=== PATIENT | female | born 1975 | race Caucasian/White ===

== ENCOUNTER → 2017-11-23 10:12 | Outpatient (CLI) | payer BC, SELFPAY ==
[2017-11-25 14:38] LABS: HPV Reflexed? NOT INDICATED
== END ==
PROVIDERS: Visit Provider Obstetrics & Gynecology
DX: Z12.4 Encounter for screening for malignant neoplasm of cervix (principal)
CPT/HCPCS: 88175; G0145

== ENCOUNTER → 2018-12-04 | Outpatient (CLI) | payer BC, SELFPAY ==
[2015-09-30 12:56] VITALS: BMI 29.5
[2018-12-11 13:00] LABS: HPV Reflexed? NOT INDICATED
== END | disposition home or self-care (01) ==
LOC: LABSPEC 15:24
PROVIDERS: Visit Provider Obstetrics & Gynecology
DX: Z12.4 Encounter for screening for malignant neoplasm of cervix (principal)
CPT/HCPCS: 88175; G0145

== ENCOUNTER 2019-05-16 05:53 | Day surgery (SDC) | payer BC, SELFPAY ==
--- NOTE | 2019-05-13 06:27 | PCM.HPOB.BLA ---
History and Physical Date of Admission: 05/16/19 MAXIMILIAN JACKSON Age: 44 Date of : 1975 HISTORY OF PRESENT ILLNESS: On 04/24/2019, Maximilian Jackson, a 44 year old female 1 1 4 0 2, presented for: -- US ANESTHESIOLOGY TECH Maximilian is here for pelvic u/s d/t heavy, irregular bleeding. LMT -- Here for postmenses ultrasound. She had called in on 04/18/19 to report she is not doing well on Kariva and started this in December. Bleeding is heavier and headaches are worse. She is changing a pad q 2 hours on heavy days and has some clots. She is considering tubal. Advised this may be best option to just go off pill. Sono today done sono in case considering ablation and to check for fibroids or other cause of persistent heavy bleeding despite OCP trials. Advised by phone ok to stop OCP in the meantime as she is in the end of this pack. She had a full panel of labs with her PCP in February -- CBC was normal no anemia. SONO today: UTERUS: 5.9 x 4.5 x 3.3 cm and is retroverted.. ENDOMETRIAL ECHO: 2 mm and contains a sub cm calcification. RIGHT OVARY: 1.6 x 1.3 x 2 cm. LEFT OVARY: 2.2 x 1.1 x 0.8 cm and contains a simple cyst measuring 1.2 x 1 x 0.8 cm. EB ALLERGIES: Progesterone and Muscle aches MEDICATIONS HISTORY: Current medications prescribed by our practice are: 1. Folbic 2.5 mg-25 mg-2 mg tablet, One po daily 2. Kariva (28) 0.15 mg-0.02 mg (21)/0.01 mg (5) tablet, 1 po daily 3. PNV-DHA 27 mg iron-1 mg-300 mg capsule, One pill by mouth once a day Patient is also takin. Zyrtec 10 mg tablet, One per day prn 2. spironolactone 50 mg tablet, bid SURGICAL HISTORY: 1. [place] teeth removed at age 19-20 2. Kidney stones blasted x 2 4 years ago 3. 03/08/2011 D and C SAB 4. 01/13/2012 D and C SAB 5. 01/12/2013 D and C SAB 6. 03/14/2012 Hysteroscopy 7. 02/04/2013 Sonohysterogram 8. 03/14/2013 Hysteroscopy 9. 04/13/2013 Retrieval on IVF 10. 06/10/2013 Sonohysterogram 11. 08/22/2013 Frozen Transfer - Failed 12. cholecystectomy, 17 years ago MENSTRUAL HISTORY: LMP Known?- DefiniteAmount/Duration - 4-5 DAYS, Regularity - Regular, Frequency - monthly days, Prior Menses - 08/04/2013, LMP - 04/18/19, Age Onset Menarche - 13 PAST PREGNANCIES: Total Pregnancies - 6; Full Term Pregnancies - 1; Premature - 1; Abortions, Induced - 0; Abortions, Spontaneous - 4; Ectopics - 0; Multiple Births - 0; Living Children - 2 FAMILY HISTORY: Father - FH: Crohn's disease; Father - FH: Hypertension; Mother - FH: Diabetes mellitus type 2; Brother - FH: Crohn's disease; MaternalGrandparent - FH: Diabetes mellitus type 2; PaternalGrandparent - Cancer; SOCIAL HISTORY: Alcohol Use - None Smoking - Never Diet - moderate, balanced diet and caffeine < 2 drinks per day Lifestyle - low stress lifestyle Exercise - regular Seat Belt Use - always Employer - Independent 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 Illicit Drug Use - None Sexual Activity - Residence - owns a home Place of - [place], [place] Hours Worked - 36 per week Spouse-Sig Other Name - Emile Spouse-Sig Other Occupation - [employer] Operator for [employer] Spouse-Sig Other Phone No - [phone] Children Name(s) - Swapna ([facility])Yas '16 Control - OCP PHYSICAL EXAMINATION BP- 122/84 Sitting, Right arm, regular cuff Weight- 130.00 lbs Height- 62.50 inch BMI:23.45 CONSTITUTIONAL - NAD, well nourished, and well developed HEENT - Normocephalic, PERRLA, EOMI NECK - no nuchal rigidity EXTREMITIES - No edema or calf tenderness NEUROLOGICAL - Cranial nerves II-XII grossly intact PSYCHIATRIC - A and O to time, place, person, mood and affect ASSESSMENT: 1. Excessive Bleeding In The Premenopausal Period 2. Other Specified Counseling 3. Other specified irregular menstruation PLAN BY DIAGNOSIS: 1. Other Specified Counseling Reviewed options for surgical sterilization including: ESSURE, Laparoscopic bilateral tubal occlusion (Filshie clips); Laparoscopic bilateral tubal fulguration, or laparoscopic bilateral salpingectomy. Prefers Laparoscopic bilateral salpingectomy. Reviewed anticipated preop,operative and postop recovery courses. Plan for laparoscopic bilateral salpingectomy with potential to reduce ovarian cancer risk in addition to prevention of Plans to stop OCP. Will use condoms until surgery. Requesting surgery this year. The visit was approximately 20 minutes in length with most of the time spent in discussion and counseling. 2. Excessive Bleeding In The Premenopausal Period and Other specified irregular menstruation Discussed sono results: no fibroids, no thickened endometrium Options for management including: IUD (declines) other hormonal contraception (declines) endometrial ablation or hysterectomy Interested in endometrial ablation. R,B,A discussed, Reviewed anticipated preop, operative and postop recovery courses including return to usual activity Brochure given to read and consider further re Dannielle. Will schedule hysteroscopy, D and C, Dannielle endometrial ablation in addition to laparoscopic bilateral salpingectomy for surgical sterilization ( not recommended with ablation)
[2019-05-16 06:25] LABS: Hematocrit 38.3 % (37-47); Hemoglobin 13.6 g/dL (12.0-15.0); Mean Corp Hgb Conc 35.5 g/dL (32-36); Mean Corpuscular Hgb 31.6 pg (27.0-32.0); Mean Corpuscular Volume 88.9 fL (81-99); Platelet Count 239 K/mm3 (150-450); RBC Distribution Width CV 11.8 % (11.6-14.6); RBC Distribution Width SD 37.7 fl (35.1-43.9); Red Blood Count 4.31 M/mm3 (4.2-5.4); White Blood Count 5.3 K/mm3 (4.4-11.0)
[2019-05-16 06:25] LABS: Internal QC Validated? YES +Cl - CLEAR BKGD; Pregnancy, Urine Negative Negative
[2019-05-16 06:26] VITALS: BP 135/99; PULSE 90; RESP 16; TEMP 37.1; O2SAT 100; BMI 23.8
[2019-05-16 06:34] LABS: International Normalized Ratio 1.1; Prothrombin Time (Protime)PT. 13.5 SECONDS (11.7-14.9)
[2019-05-16 06:35] LABS: Partial Thromboplast Time 27.6 Seconds (24.1-36.2)
[2019-05-16] MEDS: Lactated Ringers 1,000 ML 100 ML IV (06:43)
[2019-05-16 06:52] LABS: Anion Gap 4 (5-15); BUN 16 mg/dL (7-18); Calcium,Total 8.8 mg/dL (8.5-10.1); Chloride 111 mmol/L (98-107); Creatinine, Serum 0.89 mg/dL (0.55-1.02); EST Glomerular Filtration Rate 74 mL/min (>60); Est Glom Filt Rate - Afr Amer 89 mL/min (>60); Estimated Creatinine Clearance 64.46 ml/min; Glucose 106 mg/dL (74-106); Potassium 3.8 mmol/L (3.5-5.1); Sodium Level 142 mmol/L (136-145)
--- NOTE | 2019-05-16 07:30 | FALS_PTH ---
PATIENT: MAXIMILIAN TEIXEIRA LOC: [facility] [place] U[place][id number] AGE/SX: 44/F ROOM: RE05/16/[address]: Dr. Rowan Drew MD : 1975 BED: DIS: 05/16/2019 SPEC #: [id number] RECD: 05/16/19 10:23 STATUS: ABILIO REHolly #: [id number] JAGDEEP: 05/16/19 07:[address]: Rowan Drew DEPT: SURGICAL PATHOLOGY RECD BY: Henry Blanco ENTERED: 05/16/19 13:31 SP TYPE: FALL TUBES OTHR DR: Dr. Emile Plaza MD Tissues: A - Fallopian tube B - Endometrium, NOS Procedures: Surgery Specimen Level IV HEADER OPERATION: Laparoscopic, salpingectomy PRE-OP DIAGNOSIS: Sterilization TISSUE SUBMITTED: A. Bilateral fallopian tubes, B. Endometrial curettings MICROSCOPIC DIAGNOSIS A. Bilateral fallopian tubes, salpingectomy: Bilateral fallopian tubes including fimbrial ends, no pathologic diagnosis. B. Endometrial curettings: Fragments of benign endometrial tissue and blood clots. Fragments of benign endocervical mucosa with chronic inflammation. See comment. OMI:misty 05/17/19 COMMENT The specimen predominantly consists of blood clots and benign endometrial tissue predominantly consisting of stromal tissue with scattered, inactive endometrial glands. MICROSCOPIC DESCRIPTION Slides are reviewed. GROSS DESCRIPTION A - Received is one container labeled with the patient's name and designated bilateral fallopian tubes. The specimen consists of bilateral fallopian tubes including fimbrial ends measuring 4.5 cm in length and 0.5 cm in diameter and 5 cm in length and 0.5 cm in diameter. Sections do not reveal any mass lesion. The fallopian tubes are not identified as right or left. Sections reveal unremarkable cut surfaces. Clerical Specialist sections are submitted in two cassettes with each cassette containing one fallopian tube. B - Received in fixative is one container labeled with the patient's name and designated endometrial curettings. The specimen consists of multiple fragments of hemorrhagic soft tissue that in aggregate measure 2 x 1.5 x 0.1 cm. The specimen is totally submitted in one cassette. / OMI:misty 05/16/19 TC:5 CPT: 74425, 37426 x2
[2019-05-16] MEDS: Bupiv/Epi 0.25% 30 ML Vial (08:37)
--- NOTE | 2019-05-16 08:55 | PCM.DC.TUB ---
Discharge Diet: No Restrictions Discharge Activity: May not drive while taking narcotic pain medications., May Shower, May Take a Tub Bath Return to work on:: 05/18/19 May resume sexual activity in: 1-2 weeks, 4-6 weeks Additional Activity Instructions:: Ambulate often the next week after surgery. Nothing in the vagina for 5 days. Call your doctor if you observe: Fever of 101 or Higher, Inability to have a bowel movement, Using more than one pad per hour, Uncontrolled pain Cleanse incision/area with: Soap & Water, Keep Dressing Clean & Dry Allergies/Adverse Reactions: Allergies No Known Allergies Allergy (Verified 05/09/19 11:17) Medications to take at Discharge Anti Aging Formula 3 cap PO DAILY 05/09/19 Desog-E.estradiol/E.estradiol [Kariva 28 Day Tablet] 1 ea PO DAILY 05/09/19 Ferrous Sulfate [Iron] 325 mg PO DAILY 05/09/19 Folic Acid [FA-8] 0.8 mg PO DAILY 05/09/19 Spironolactone [Aldactone] 50 mg PO BID 05/09/19 Oxycodone [Oxyir] 5 mg PO Q6H PRN PRN 3 Days #10 tablet 05/16/19 The following prescriptions were given: Oxycodone [Oxyir] 5 mg PO Q6H PRN PRN 3 Days #10 tablet PRN Reason: Mod-Severe Pain (4-03/15) Transmission Status: Received by [facility]/pharmacy #[id number] Primary Care Physician: Emile Plaza MD [Primary Care Provider] - Test Results: Test results from this visit will be discussed in further detail at your follow-up appointment, if applicable. Please Follow Up With: Rowan Drew MD - [phone] When: 1-2 wk for incision check, postop appt. Proposed Discharge Date: 05/16/19
[2019-05-16 09:00] VITALS: BP 126/85; BP 135/99; PULSE 93; RESP 16; TEMP 36.6; O2SAT 100
[2019-05-16 09:15] VITALS: BP 123/82; BP 135/99; PULSE 81; RESP 16; O2SAT 100
[2019-05-16 09:30] VITALS: BP 132/84; BP 135/99; PULSE 84; RESP 16; O2SAT 100
[2019-05-16 09:45] VITALS: BP 135/84; BP 135/99; PULSE 88; RESP 16; TEMP 37.3; O2SAT 100
[2019-05-16] MEDS: oxyCODONE 5 MG Tablet PO (10:06)
[2019-05-16 11:01] VITALS: BP 115/68; BP 135/99; PULSE 89; TEMP 36.6; O2SAT 96
--- NOTE | 2019-05-16 12:40 | OP.PCM_ITS ---
Report of Operation Date of Procedure: 05/16/19 Pre-Operative Diagnosis: Excessive bleeding in premenopause, Sterilization request Post-Operative Diagnosis: Same Surgery/Procedure Performed:: Laparoscopic bilateral salpingectomy. Hysteroscopy, D and C, Hydrothermal ablation. Description of Surgical Findings:: Findings: Laparoscopic findings: There is a normal-appearing retroverted, small uterus. Fallopian tubes and ovaries are within normal limits. Gross inspection of the bowel, omentum, liver edge are also within normal limits. Photos were taken of the uterus and ovaries after the bilateral partial salpingectomy, and of the right upper quadrant/liver edge. Hysteroscopic findings: Normal-appearing , fluffy endometrium. Neither tubal ostia visualized . Narrative account: After the risks, benefits, alternatives of the procedure have been reviewed with the patient, informed consent was obtained. The patient was taken to the operating room with an IV running. She was positioned on the operating table in dorsal supine position, where she was given general anesthesia. Once asleep she was repositioned into the dorsal lithotomy position and prepped and draped in the usual sterile fashion. A red Posey catheter was used to drain the bladder prior to initiating the case. A sponge stick was placed into the cervix to allow manipulation of the cervix and uterus during the case. Attention was then turned to the anterior abdominal wall where 0.25% percent Marcaine with epinephrine was instilled at the suprapubic and infraumbilical skin and at a point midway between the two, in the midline. Skin incisions were then created in the midline at the suprapubic skin, at the infraumbilical skin, and at a point in the midline midway between the two. While maintaining upward traction of the anterior abdominal wall, a Veress needle was inserted through the umbilical incision into the peritoneal cavity. There was free drop of saline, low opening pressure and free flow of CO2 noted. Once the intra- abdominal pressure had reached 12 mmHg the Veress needle was removed and a bladeless 5 mm trocar was inserted through the infraumbilical skin incision into the peritoneal cavity. Correct placement was confirmed using the scope. Under direct visualization then with the patient in Trendelenburg position, a bladeless 5 mm trocar was inserted in through the suprapubic skin incision into the peritoneal cavity and at the mid lower abdominal incision midway between the infraumbilical and suprapubic trocars. The uterus was retroverted and small. Both ovaries and fallopian tubes were within normal limits. The right fallopian tube was grasped and retracted medially and using a LigaSure device the right fallopian tube was excised from the ovary and mesosalpinx to the level of the uterine fundus. Excellent hemostasis was noted at the excision site. The right fallopian tube was brought through the suprapubic trocar and set aside for later pathology review. In a similar manner the left fallopian tube was grasped and retracted medially and the fallopian tube was excised and removed from the abdominal cavity through the suprapubic trocar. The fallopian tubes were sent to pathology. Excellent hemostasis was noted by visualization of the pelvis, ovaries, and remaining mesosalpinx. Photos were taken of the uterus and bilateral remaining ovaries and of the right upper quadrant and liver edge. At this point the laparoscopic portion of the procedure was terminated. The pneumoperitoneum was reduced and the instruments and trochars were removed from the anterior abdominal wall skin. The skin incisions were closed with 4-0 Monocryl in a subcuticular fashion Dermabond was applied to the skin. A Graves speculum was placed into the vagina and the cervix was brought into view. A single-tooth tenaculum was applied to the anterior lip of the cervix. The cervix was sequentially dilated to allow admission of the hysteroscope. The uterus sounded to 6 cm and was retroverted. The hysteroscopy was performed with the findings noted above. A sharp curettage was then performed and pieces of tissue were were withdrawn and set aside for later pathology review. There was good crei in all quadrants The Dannielle device was opened but due to the small uterus could not be used for the ablation. The Hydrothermal ablation device was brought into the room and set up. The 10 minute HTA was performed. At the completion of the treatment cycle the device was cooled and removed from the patient. At this point the procedure was terminated the single-toothed tenaculum was removed from the anterior lip of the cervix and a Ray-Sheryl gauze was used to remove any remaining tissue and blood from the upper vagina and cervix. Excellent hemostasis was noted. The speculum was removed. The patient was returned to dorsal supine position and awakened from IV sedation and then transferred to her recovery room bed in stable condition after tolerating the procedure well. Sponge, lap, needle, and instrument counts were correct x2. Medications given intraoperatively included 10 cc of 0.25% lidocaine with epinephrine instilled as a subcutaneous block for the laparoscopic bilateral sa lpingectomy. For complete listing the medications given intraoperatively, see the anesthesia record. community service coordinator: Cece Wu Type of Anesthesia:: General Anesthesiologist: Coleen Finnegan CRNA Specimen's removed: uterine curettings. Bilateral fallopian tubes Estimated Blood Loss (mL): 20 Fluids Replaced: LR - Complications None - Admit VTE Documentation VTE Present on Admission: No VTE Mechan Device Prophylaxis: [facility] [place]'s VTE Pharm Prophylaxis ordered?: No
== END 2019-05-16 11:06 | disposition home or self-care (01) ==
LOC: SDC 05:53 → AC 05:56
PROVIDERS: Anesthesiology; Family Provider Family Medicine; PCP Family Medicine; Referring Provider Obstetrics & Gynecology; Visit Provider Obstetrics & Gynecology
PROC: (CPT 58661; principal; 2019-05-16 07:15)
PROC: 0U5B8ZZ Destruction of Endometrium, Via Natural or Artificial Opening Endoscopic (ICD-10-PCS; CPT 58558; 2019-05-16 07:15)
DX: N92.0 Excessive and frequent menstruation with regular cycle (principal); N71.1 Chronic inflammatory disease of uterus; Z30.2 Encounter for sterilization; I10 Essential (primary) hypertension; E61.1 Iron deficiency; Z87.442 Personal history of urinary calculi; Z79.899 Other long term (current) drug therapy
CPT/HCPCS: 58558; 58661; 36415; 80048; 81025; 85027; 85610; 85730; 88302; 88305; J7120; J2405

== ENCOUNTER → 2021-11-11 | Outpatient (CLI) | payer BC, SELFPAY ==
--- NOTE | 2021-11-11 16:02 | RAD_ITS ---
EXAM: XR ABDOMEN, 1 VIEW CLINICAL INDICATION: RENAL CALCULUS TECHNIQUE: Frontal supine view of the abdomen/pelvis. This report was created using [employer] report generation technology. COMPARISON: None. FINDINGS: LOWER THORAX: No acute pathology. GASTROINTESTINAL TRACT: Unremarkable. Non-obstructive. No bowel or stomach distention. ORGANS: Unremarkable as visualized. No organomegaly. No abnormal calcifications. BONES/JOINTS: No acute pathology. SOFT TISSUES: No acute pathology. RAD/Abdomen Single View IMPRESSION: Non-obstructive bowel gas pattern. Electronically Signed: Garrett Borja MD at 16:16 EDT ,
== END | disposition home or self-care (01) ==
PROVIDERS: PCP Family Medicine; Referring Provider Urology; Visit Provider Urology
DX: N20.0 Calculus of kidney (principal)
CPT/HCPCS: 74018

== ENCOUNTER → 2022-03-17 | Outpatient (CLI) | payer BC, SELFPAY ==
[2022-03-24 11:17] LABS: HPV APTIMA, High Risk Negative (Negative)
== END | disposition home or self-care (01) ==
LOC: LABSPEC 13:41
PROVIDERS: PCP Family Medicine; Visit Provider Obstetrics & Gynecology
DX: Z12.4 Encounter for screening for malignant neoplasm of cervix (principal)
CPT/HCPCS: 87624; 88175; G0145

== ENCOUNTER → 2023-01-12 | Outpatient (CLI) | payer BC, SELFPAY ==
--- NOTE | 2023-01-12 12:36 | RAD_ITS ---
EXAM: XR ABDOMEN, 1 VIEW CLINICAL INDICATION: JULIETTE OF KIDNEY TECHNIQUE: Frontal supine view of the abdomen/pelvis. COMPARISON: November 11, 2021. FINDINGS: LOWER THORAX: No acute pathology. GASTROINTESTINAL TRACT: Unremarkable. Non-obstructive. No bowel or stomach distention. ORGANS: Unremarkable as visualized. No organomegaly. No abnormal calcifications. BONES/JOINTS: No acute pathology. SOFT TISSUES: No acute pathology. RAD/Abdomen Single View IMPRESSION: Non-obstructive bowel gas pattern. Electronically Signed: Pankaj Naqvi MD at 3:28 EDT ,
== END | disposition home or self-care (01) ==
LOC: MTRAD 12:34
PROVIDERS: PCP Family Medicine; Referring Provider Urology; Visit Provider Urology
DX: N20.0 Calculus of kidney (principal)
CPT/HCPCS: 74018

== ENCOUNTER 2024-10-23 05:54 | Day surgery (SDC) | payer BC, SELFPAY ==
[2024-10-23] VITALS (9 sets, daily range): BP systolic 112–134; BP diastolic 71–99; PULSE 89–106; RESP 16–20; TEMP 36.8–37; O2SAT 99–100; BMI 24.2
[2024-10-23] MEDS: Lactated Ringers 1,000 ML 15 ML IV (06:39)
--- NOTE | 2024-10-23 06:45 | PCM.PRE.AN2 ---
ASA Classification* ASA Classification ASA Classification: 2 Assessment & Plan Anesthesia* Anesthesia Assessment Anesthesia Assessment: Discussed sedation and/or anesthesia options, risks, benefits, and alternatives with patient/parents/legal guardian/POA. Questions invited. The patient/parents/legal guardian/POA seems to understand and agrees to proceed with anesthesia plan. Reviewed the physical assessment, medical history, allergy history and patient home medications list prior to surgery/procedure/anesthetic and documented any changes. Performed airway and anesthesia risk assessments. Anesthesia Type Anesthesia Type: MAC (GA bkup) Anesthesia Focused Assessment* Temperature: 98.6 F Pulse Rate: 92 Blood Pressure: 134/87 Respiratory Rate: 16 Pulse Ox: 100 Airway Assessment Mouth opens: >3 cm Mallampati Score: II Focused Labs Anesthesia Preop lab: CBC WBC 5.3 K/mm3 (4.4-11.0) 05/16/19 06:09 05/16/19 RBC 4.31 M/mm3 (4.2-5.4) 05/16/19 06:09 05/16/19 Hgb 13.6 g/dL (12.0-15.0) 05/16/19 06:09 05/16/19 Hct 38.3 % (37-47) 05/16/19 06:09 05/16/19 Plt Count 239 K/mm3 (150-450) 05/16/19 06:09 05/16/19 CHEMISTRY Potassium 3.8 mmol/L (3.5-5.1) 05/16/19 06:09 05/16/19 Sodium 142 mmol/L (136-145) 05/16/19 06:09 05/16/19 BUN 16 mg/dL (7-18) 05/16/19 06:09 05/16/19 Creatinine 0.89 mg/dL (0.55-1.02) 05/16/19 06:09 05/16/19 Glucose 106 mg/dL (74-106) 05/16/19 06:09 05/16/19 TSH 1.86 uIU/mL (0.358-3.74) 12/28/16 09:02 12/28/16 COAG PT 13.5 SECONDS (11.7-14.9) 05/16/19 06:09 05/16/19 Urine Test Negative Negative 05/16/19 06:15 05/16/19 Pre-Assessment Diagnosis/Proposed Procedure Planned Operative Procedure(s): (N/A) Wide localized excision dysplastic nevus abdomen Anesthesia History 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 When Was Last Pacemaker Check QUESTION #4 FULL TEXT: You/Your Family Experience fever (hyperthermia) with Anesthesia Last Oral Intake Last Oral intake: Last Oral Intake NPO since 00:00 10/23/24 06:33 Meds taken in AM with sips of water? 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 Female Yes 10/15/24 13:06 HX of Motion Sickness Yes 10/15/24 13:06 HX of N/V After Surgery Yes 10/15/24 13:06 Non-Smoker Yes 10/15/24 13:06 Duration of Surgery greater Yes 10/15/24 13:06 than 60 minutes Number of Risk Factors 5 10/15/24 13:06 PONV Score Severe Risk 10/15/24 13:06 Height & Weight Height & Weight: Anesthesia: Height & Weight Height 5 ft 2 in 10/23/24 06:33 Weight: 60 kg 10/23/24 06:33 Body Mass Index (BMI) 24.2 10/23/24 06:33 Respiratory Assessment Respiratory Assessment - dental assistant instructor: Respiratory Tract Infection Hx - dental assistant instructor Hx Respiratory Tract Infection No 10/15/24 13:06 STOP Sleep Apnea STOP Sleep Apnea - dental assistant instructor: STOP Sleep Apnea - dental assistant instructor Hx Hypertension Yes: CONTROLLED WITH MED 10/15/24 13:06 Hx Sleep Apnea No 10/15/24 13:06 CPAP BIPAP Do you snore loudly (louder No 10/15/24 13:06 than talking or can be heard Do you often feel tired/ No 10/15/24 13:06 fatigued/ sleepy during daytime? Has anyone observed you stop No 10/15/24 13:06 breathing during sleep? STOP Results Negative 10/15/24 13:06 QUESTION #5 FULL TEXT : Do you snore loudly (louder than talking or can be heard through closed doors)? 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 Specify any problems Hx of Preganancy in last 3 N/A 10/15/24 13:06 Months Nurse Filling Out Transfusion NBUCHER 10/15/24 13:06 & Questions: Date: 10/15/24 10/15/24 13:06 Time: 13:07 10/15/24 13:06 Patient unable to answer at this time (ie. confused, unrespo /Reproduction History /Reproductive History - dental assistant instructor: /Reproductive Hx- dental assistant instructor Hx Now No 10/15/24 13:06 Gestational Age (in weeks): EDC: Hx Hx Para Hx Section SAB No 10/15/24 13:06 Active Medications Active Medications: Current Medications Generic Name Dose Route Start Last Admin Trade Name Freq PRN Reason Stop Dose Admin Cefazolin Sodium 2 gm/ Sodium 110 mls @ 150 mls/hr 10/23/24 07:30 Chloride IV 10/23/24 08:13 INTRAOP ONE Lactated Ringer's 1,000 mls @ 15 mls/hr 10/23/24 06:15 10/23/24 06:39 IV 15 mls/hr .Q48H JOE Administration PFSH Medical History History of kidney stones Gastric reflux Non-smoker Hypertension PONV (postoperative nausea and vomiting) Home Medications ?Medication ?Instructions ?Recorded ?Last Taken ?Type spironolactone 50 mg tablet 50 mg PO BID 05/09/19 10/22/24 History cetirizine 10 mg tablet (24Hour 10 mg PO DAILY 10/15/24 10/22/24 History Allergy) multivitamin (Daily Multi-Vitamin 1 tab PO DAILY 10/15/24 10/22/24 History tablet) Allergy/AdvReac Type Severity Reaction Status Date / Time No Known Allergies Allergy Verified 10/15/24 13:05 Surgical History History of bilateral salpingectomy (~05/2019) History of lithotripsy History of cholecystectomy (~12/2001) History of D&C Social History Smoking Status: Never smoker Review of Systems (Anesthesia) ROS Narrative System reviewed and no additional complaints, except as documented.
--- NOTE | 2024-10-23 07:21 | HP.PCM.SX_ITS ---
HPI - General HPI Narrative Kavya Jackson is a delightful 41-year-old female who is otherwise healthy and is a non-smoker who presents with an atypical mole that was biopsied (shave ) in the midline supraumbilical region of her abdomen by cloth winder machine operator Dr. Jorge Sharma at [facility]. He referred her to plastic surgery as the atypical melanocytes within the lesion were positive for a marker that is often suggestive of melanoma in situ, and the pathology report recommended reexcision. Patient is not a smoker No diabetes No personal or family history of bleeding or clotting problems We discussed the importance of sunscreen today at the visit Current Encounter (DATE OF SURGERY H&P UPDATE): I saw and examined the patient this morning in pre-operative holding. We discussed risks and benefits of today's surgery and they would like to proceed. NO CHANGE in health history since last seen and evaluated. Ready to proceed with surgery. [facility] Medical History History of kidney stones Gastric reflux Non-smoker Hypertension PONV (postoperative nausea and vomiting) Home Medications ?Medication ?Instructions ?Recorded ?Last Taken ?Type spironolactone 50 mg tablet 50 mg PO BID 05/09/1910/04 History cetirizine 10 mg tablet (24Hour 10 mg PO DAILY 5 10/22/24 History Allergy) multivitamin (Daily Multi-Vitamin 1 tab PO DAILY 10/1510/22/24 History tablet) Allergy/AdvReac Type Severity Reaction Status Date / Time No Known Allergies Allergy Verified 10/15/24 13:05 Surgical History History of bilateral salpingectomy (~05/2019) History of lithotripsy History of cholecystectomy (~12/2001) History of D&C Social History Smoking Status: Never smoker Vital Signs Vital Signs Vital Signs: 10/23/24 06:32 10/23/24 06:33 10/23/24 06:46 Temperature 98.6 F 98.6 F Temperature Source Temporal Pulse Rate 92 92 Respiratory Rate 16 16 Respiratory Pattern Normal Blood Pressure 134/87 H 134/87 H Blood Pressure Mean 102 Blood Pressure Source Monitor Blood Pressure Position Semi-Fowlers Blood Pressure Location Right Arm Pulse Ox 100 100 Oxygen Delivery Method Room Air Weight Weight: 132 lb 4.438 oz Body Mass Index (BMI) 24.2 Physical Exam Narrative Approximately 1 x 1 cm shave biopsy site upper abdomen. Assessment & Plan Assessment/Plan (1) Dysplastic nevi: PLAN: Plan After discussion with Dr. Sharma, as well as with the patient and her , our plan is for melanoma in situ margins further reexcision (5 mm) in the event that the final pathology from my reexcision comes back melanoma in situ. This will be definitive management of the lesion. I discussed with her a midline scar (vertical). We talked about the risks of surgery including bleeding, infection, poor scarring, contour abnormalities, damage to surrounding structures, wound healing complications, as well as the risks of anesthesia. Plan for excision of the dysplastic nevi with 5 mm margins of the dysplastic nevi upper central abdomen under local and sedation in the operating room. INTERVAL H&P PLAN, DATE OF SURGERY: We will proceed with surgery today. I talked to the patient extensively about the risks of surgery, including bleeding, infection, damage to surrounding structures, poor scaring, lesion recurrence, surgical site dehiscence and wound formation, need for wound care, need for repeat operations, failure to obtain the desired result, and the risks of anesthesia including. The benefits and alternatives of this surgery were also discussed. All of their questions were answered, and they agreed to proceed with surgery.
--- NOTE | 2024-10-23 07:30 | LES_PTH ---
PATIENT: MAXIMILIAN TEIXEIRA LOC: [facility] [place] U#:[id number] AGE/SX: 49/F ROOM: RE10/23/[address]: Dr. Hayden Davis MD : 1975 BED: DIS: 10/23/2024 SPEC #: [id number] RECD: 10/23/24 10:03 STATUS: ABILIO GOLDBERGHolly #: [id number] JAGDEEP: 10/23/24 07:[address]: Hayden Davis DEPT: SURGICAL PATHOLOGY RECD BY: [employer] ENTERED: 10/23/24 10:13 SP TYPE: Lesion OTHR DR: ROCÍO ADDISON MD Tissues: A - Skin of abdomen, NOS Procedures: Immunohistochemical Stains Surgery Specimen Level IV IHC Stain ADDITIONAL HEADER OPERATION: Wide localized excision dysplastic nevus abdomen PRE-OP DIAGNOSIS: Dysplastic nevi TISSUE SUBMITTED: A- Re-excision dysplastic nevi *short stitch- superior, long stitch- lateral* MICROSCOPIC DIAGNOSIS A. Skin, abdomen, dysplastic nevus, re-excision: * No residual melanocytic proliferation observed. * Scar and associated reactive changes consistent with a previous surgical procedure. * The nearest distance of the scar to a surgical margin (lateral) is 3 mm. * IHC for Melan-A (A3, A4) supports the histologic impression. MICROSCOPIC DESCRIPTION Slides are reviewed. All matched controls reacted appropriately. These tests were developed and their performance characteristics determined by [facility]. They may not have been cleared or approved by the U.S. Food and Drug Administration. The FDA has determined that such clearance or approval is not necessary.? The above immunohistochemical/dualISH?markers are ordered and reviewed by the Pathologist. GROSS DESCRIPTION A. Received in formalin in a container labeled with the patient's name, date of , and reexcision dysplastic nevi, short stitch hurtado superior, long left lateral is an oriented and circular skin excision with a short stitch indicating superior margin and long stitch indicating left lateral. The specimen is 1.7 cm from superior to inferior, 1.7 cm from left lateral to right medial, with an excisional depth up to 1.6 cm. The epidermis is notable for a circular, red-pink, roughened lesion measuring 0.5 x 0.5 cm. The lesion is situated to the margins as follows:Superior: 0.6 cmLateral: 0.5 cmInferior: 0.6 cmMedial: 0.5 cm The medial half is inked blue, and the lateral half is inked black. The specimen is serially sectioned from superior to inferior into 5 slices to reveal that the roughened lesion grossly appears confined to the epidermis. The remaining cut surfaces exhibit perkins-yellow, lobulated areas with scattered hemorrhage. The specimen is entirely and sequentially submitted from superior to inferior as follows:A1. Superior end, perpendicularA2. Slice 2, unremarkable between superior end and lesionA3. Slice 3, lesion A4. Slice 4, lesionA5-6. Slice 5, perpendicular sections of inferior margin [facility] 10-23-2024 CPT:25903,63204,83911
[2024-10-23] MEDS: Cefazolin 2 GM in 0.9% Normal Saline (100mL Bag) 100 ML IV (07:35)
--- NOTE | 2024-10-23 07:41 | PCM.OPRPT ---
Operative Report (Standard) Operative Information Date of Procedure: 10/23/24 Pre-Operative Diagnosis: Dysplastic nevus, upper central abdomen Post-Operative Diagnosis: Same Surgery/Procedure Performed: 1) Excision of upper abdomen dysplastic nevus with 5 mm margins (out of concern for positive melanoma in situ marker on initial pathology), measured 2.2 x 2.2 cm (CPT:89005) 2) Intermediate closure of abdominal wound, 4.5 cm (CPT: 10112) spotlight operator: Yes Wind Tunnel Mechanic: Fatuma Moreno Tasks completed by assistant chief of police: Retracting Type of Anesthesia: Local MAC (10 cc of a 50-50 mixture of 1% lidocaine with 1-200,000 epinephrine and quarter percent Marcaine with 1-200,000 epinephrine) RN Documented Start/Stop Times: Operation Date: 10/23/24 07:30 Case Time Into Pre-Op 10/23/24 06:00 Out of Pre-Op 10/23/24 07:25 Procedure Start Time: 07:50 Procedure Stop Time: 08:02 Select all DRAINS/GRAFTS/IMPLANTS that apply: None Estimated Blood Loss: Minimal Specimen collected: Yes Description of specimen(s) removed: Upper central abdomen dysplastic nevi excision, oriented short superior, long left lateral Description of surgery: Indications: Patient is a delightful 49-year-old female with a dysplastic nevus on the upper central abdomen diagnosed by shave biopsy from a local wheelabrator operator. After discussion with the wheelabrator operator regarding the pathology report which demonstrated a marker that could be suggestive of a melanoma in situ, the pathologist and the wheelabrator operator recommended excision with 5 mm margins (in the event that the final pathology comes back melanoma in situ or in the event that we are missing some of the melanoma in situ on the pathology). I talked to the patient in clinic about this and she was in agreement with this plan as this is a safe and conservative way to manage the lesion. I talked her about the scarring, and anticipated postoperative course. In preoperative holding I marked the lesion with the patient and her in agreement with the site marking. She agreed to proceed and understood the risks, benefits, and alternatives to the procedure. Procedure details: Patient was correctly identified in preoperative holding and taken back to the operating room where she was administered sedation and local anesthesia as noted above. She was prepped and draped in sterile fashion all proper timeouts were performed. An elliptical excision oriented vertically around the skin lesion was performed with a 15 blade scalpel with care taken to remove 5 mm circumferential margins around the lesion at the previous shave biopsy site. Hemostasis was obtained with Bovie electrocautery and the wound was irrigated with copious amounts normal saline. The specimen was excised down to the level of the fascia. It was oriented short superior long left lateral with a silk marking stitch. It measured 2.2 by 2.2 centimeters and was sent to pathology . The wound was then closed with 3-0 Monocryl deep dermal followed by 3-0 Monocryl running subcuticular and Prineo tape for a total intermediate closure4.5 centimeters. Patient tolerated procedure well. She was awakened and taken to the PACU in stable condition. Surgical Findings: Able to close without significant tension following excision 5 mm margins taken around the lesion Complications Complications: No
[2024-10-23] MEDS: Bupiv/Epi 0.25% 30 ML Vial (07:50)
[2024-10-23] MEDS: Lidocaine 1% /Epi 1:100 (20ml) 20 ML Vial (07:50)
--- NOTE | 2024-10-23 08:13 | PCM.POST.ANE ---
Anesthesia: Postop Eval I Current Vital Signs Temperature: 98.2 F Pulse Rate: 103 Blood Pressure: 128/76 Respiratory Rate: 20 Pulse Ox: 100 Oxygen Delivery Method: Room Air Assessment Airway patent: Yes Spontaneous unlabored respirations: Yes Mental status: Awake and Calm nausea: No Vomiting: No Anesthesia Complication: No Fluid Hydration Crystalloid volume administer (ml): 500 Total IV fluid infused: 500 Progress Note Anesthesia document: Postop Eval 1 completed: Yes
--- NOTE | 2024-10-23 08:18 | POSTOPAN2_ITS ---
Anesthesia Postop Eval I Sum Postop Eval Completion status Anesthesia document: Postop Eval 1 completed: Yes Anesthesia Postop Eval I Summary Anesthesia Postop Eval I Summary: Anesthesia Postop Eval I: Assessment Summary Airway patent Yes 10/23/24 08:13 ORDER PROCESSING [email or web address] Spontaneous unlabored Yes 10/23/24 08:13 ORDER PROCESSING [email or web address] respirations Mental status Awake,Calm 10/23/24 08:13 ORDER PROCESSING [email or web address] nausea No 10/23/24 08:13 ORDER PROCESSING [email or web address] Vomiting No 10/23/24 08:13 ORDER PROCESSING [email or web address] Anesthesia Postop Eval I: Fluid Summary Crystalloid volume administer 500 10/23/24 08:13 ORDER PROCESSING [email or web address] (ml) Colloids volume administered ( ml) Blood Product volume administered (ml) Total IV fluid infused 500 10/23/24 08:13 ORDER PROCESSING [email or web address] Anesthesia Postop Eval I: Summary Notes Anesthesia Complication No 10/23/24 08:13 ORDER PROCESSING [email or web address] Anesthesia Complication Comment: Post-operative progress note Anesthesia: Postop Eval II Evaluation Mental status: Awake Pain Level: 0 nausea: No Vomiting: No
--- NOTE | 2024-10-23 08:18 | PCM.POSTANE2 ---
Anesthesia Postop Eval I Sum Postop Eval Completion status Anesthesia document: Postop Eval 1 completed: Yes Anesthesia Postop Eval I Summary Anesthesia Postop Eval I Summary: Anesthesia Postop Eval I: Assessment Summary Airway patent Yes 10/23/24 08:13 PATTERN CHAIN MAKER [email or web address] Spontaneous unlabored Yes 10/23/24 08:13 PATTERN CHAIN MAKER [email or web address] respirations Mental status Awake,Calm 10/23/24 08:13 PATTERN CHAIN MAKER [email or web address] nausea No 10/23/24 08:13 PATTERN CHAIN MAKER [email or web address] Vomiting No 10/23/24 08:13 PATTERN CHAIN MAKER [email or web address] Anesthesia Postop Eval I: Fluid Summary Crystalloid volume administer 500 10/23/24 08:13 PATTERN CHAIN MAKER [email or web address] (ml) Colloids volume administered ( ml) Blood Product volume administered (ml) Total IV fluid infused 500 10/23/24 08:13 PATTERN CHAIN MAKER [email or web address] Anesthesia Postop Eval I: Summary Notes Anesthesia Complication No 10/23/24 08:13 PATTERN CHAIN MAKER [email or web address] Anesthesia Complication Comment: Post-operative progress note Anesthesia: Postop Eval II Evaluation Mental status: Awake Pain Level: 0 nausea: No Vomiting: No
== END 2024-10-23 09:18 | disposition home or self-care (01) ==
LOC: SDC 05:54 → AC 05:55
PROVIDERS: PCP Family Medicine; Referring Provider Surgery Plastic and Reconstructive Surgery; Visit Provider Surgery Plastic and Reconstructive Surgery
PROC: (CPT 11403; principal; 2024-10-23 07:20)
DX: D23.5 Other benign neoplasm of skin of trunk (principal); I10 Essential (primary) hypertension; K21.9 Gastro-esophageal reflux disease without esophagitis; Z79.899 Other long term (current) drug therapy; L90.5 Scar conditions and fibrosis of skin
CPT/HCPCS: 11403; 12032; 00300; 88305; 88341; 88342